=== PATIENT | male | born 1960 | race Caucasian/White ===

== ENCOUNTER 2020-04-28 09:05 | Inpatient (IN) ==
[2020-04-28] MEDS: Metoprolol XL (24 HR) Succ 50 MG TAB.ER.24H PO SCH (21:27)
[2020-04-28] MEDS: Lactobacillus 1 EACH CAP.SPRINK PO SCH (21:27)
[2020-04-28] MEDS: CarBAMazepine 100 MG TABLET PO SCH (21:27)
[2020-04-28] MEDS: Gabapentin 300 MG CAPSULE PO SCH (21:27)
[2020-04-29] MEDS ORDERED: Dextrose Gel 15 GM/37.5 ML TUBE PO PRN ×2 (02:24)
[2020-04-29] MEDS ORDERED: *HR* Dextrose 50 % in Water (Vial) 50 ML VIAL IVP PRN (02:24)
[2020-04-29] MEDS ORDERED: D5% in Water 1,000 ML IVC PRN (02:24)
[2020-04-29] MEDS: Acetaminophen 325 MG TABLET PO PRN (02:48)
[2020-04-29 04:54] LABS: Basophils # 0.1 K/mcL (0.0-0.2); Basophils % 0.5 %; Eosinophils # 0.2 K/mcL (0.0-0.6); Eosinophils % 2.2 %; Hematocrit 30.8 % (37.5-50.1); Hemoglobin 10.1 g/dL (12.9-16.9); Immature Granulocytes % 0.4 % (0-4); Lymphocytes # 2.3 K/mcL (0.6-4.6); Lymphocytes % 25.4 %; Mean Corpuscular HGB Conc 32.8 g/dL (31.6-35.5); Mean Corpuscular Hemoglobin 29.4 pg (28.0-33.3); Mean Corpuscular Volume 89.8 fL (83.0-100.0); Mean Platelet Volume 10.4 fL (9.4-12.4); Monocytes # 0.6 K/mcL (0.0-1.3); Monocytes % 6.6 %; Neutrophils # 5.9 K/mcL (1.6-8.9); Platelet Count 340 K/mcL (140-400); Red Blood Count 3.43 M/mcL (4.19-5.50); Segmented Neutrophils % 64.9 %; White Blood Count 9.1 K/mcL (4.3-11.1)
[2020-04-29 05:12] LABS: Calcium 8.9 mg/dL (8.6-10.3); Potassium 3.6 mEq/L (3.5-5.1)
[2020-04-29] MEDS: *HR* Enoxaparin 40 MG/0.4 ML SYRINGE SQ SCH (05:41)
[2020-04-29] MEDS ORDERED: Cyanocobalamin (B-12) 1,000 MCG TABLET PO SCH (09:00)
[2020-04-29] MEDS ORDERED: Folic Acid 1 MG TABLET PO SCH (09:00)
[2020-04-29] MEDS: Fluticasone Propionate Nasal 50 MCG/SPRAY BOTTLE NS SCH (09:27)
[2020-04-29] MEDS: Metoprolol XL (24 HR) Succ 50 MG TAB.ER.24H PO SCH ×2 (09:29→21:13)
[2020-04-29] MEDS: Gabapentin 300 MG CAPSULE PO SCH ×2 (09:29→21:13)
[2020-04-29] MEDS: Aspirin Enteric Coated 81 MG Tablet PO SCH (09:29)
[2020-04-29] MEDS: *HR* SitaGLIPtin 25 MG TABLET PO SCH (09:29)
[2020-04-29] MEDS: Lactobacillus 1 EACH CAP.SPRINK PO SCH ×2 (09:30→21:13)
[2020-04-29] MEDS: Loratadine 10 MG TABLET PO SCH (09:30)
[2020-04-29] MEDS: CarBAMazepine 100 MG TABLET PO SCH ×2 (09:30→21:14)
[2020-04-29] MEDS: allopurinoL 300 MG TABLET PO SCH (09:30)
[2020-04-29] MEDS: lisinopriL 10 MG TABLET PO SCH (09:44)
[2020-04-29] MEDS: Insulin LISPRO 300 UNITS/3 ML VIAL SUBQ SCH ×4 (09:44→20:00)
[2020-04-30] MEDS: *HR* Enoxaparin 40 MG/0.4 ML SYRINGE SQ SCH (04:17)
[2020-04-30] MEDS: *HR* SitaGLIPtin 25 MG TABLET PO SCH (08:03)
[2020-04-30] MEDS: Metoprolol XL (24 HR) Succ 50 MG TAB.ER.24H PO SCH ×2 (08:03→20:39)
[2020-04-30] MEDS: lisinopriL 10 MG TABLET PO SCH (08:03)
[2020-04-30] MEDS: Lactobacillus 1 EACH CAP.SPRINK PO SCH ×2 (08:03→20:39)
[2020-04-30] MEDS: Gabapentin 300 MG CAPSULE PO SCH ×2 (08:03→20:39)
[2020-04-30] MEDS: Fluticasone Propionate Nasal 50 MCG/SPRAY BOTTLE NS SCH (08:04)
[2020-04-30] MEDS: Loratadine 10 MG TABLET PO SCH (08:04)
[2020-04-30] MEDS: CarBAMazepine 100 MG TABLET PO SCH ×2 (08:04→20:39)
[2020-04-30] MEDS: Aspirin Enteric Coated 81 MG Tablet PO SCH (08:04)
[2020-04-30] MEDS: allopurinoL 300 MG TABLET PO SCH (08:04)
[2020-04-30] MEDS: Insulin LISPRO 300 UNITS/3 ML VIAL SUBQ SCH ×4 (08:09→20:32)
[2020-04-30] MEDS: Acetaminophen 325 MG TABLET PO PRN (11:40)
[2020-05-01] MEDS: *HR* Enoxaparin 40 MG/0.4 ML SYRINGE SQ SCH (05:00)
[2020-05-01 06:10] LABS: Basophils % 0.5 %; Eosinophils # 0.2 K/mcL (0.0-0.6); Eosinophils % 2.1 %; Hemoglobin 9.3 g/dL (12.9-16.9); Immature Granulocytes % 0.5 % (0-4); Lymphocytes # 2.2 K/mcL (0.6-4.6); Lymphocytes % 26.3 %; Mean Corpuscular HGB Conc 32.1 g/dL (31.6-35.5); Mean Corpuscular Hemoglobin 29.5 pg (28.0-33.3); Mean Corpuscular Volume 92.1 fL (83.0-100.0); Mean Platelet Volume 10.6 fL (9.4-12.4); Monocytes # 0.5 K/mcL (0.0-1.3); Monocytes % 6.4 %; Neutrophils # 5.3 K/mcL (1.6-8.9); Platelet Count 286 K/mcL (140-400); Red Blood Count 3.15 M/mcL (4.19-5.50); Red Cell Distribution Width 14.5 % (11.5-14.5); Segmented Neutrophils % 64.2 %; White Blood Count 8.3 K/mcL (4.3-11.1)
[2020-05-01 06:34] LABS: Calcium 8.6 mg/dL (8.6-10.3); Potassium 3.6 mEq/L (3.5-5.1)
[2020-05-01] MEDS: Metoprolol XL (24 HR) Succ 50 MG TAB.ER.24H PO SCH ×2 (09:36→20:25)
[2020-05-01] MEDS: Loratadine 10 MG TABLET PO SCH (09:36)
[2020-05-01] MEDS: lisinopriL 10 MG TABLET PO SCH (09:36)
[2020-05-01] MEDS: Gabapentin 300 MG CAPSULE PO SCH ×2 (09:36→20:25)
[2020-05-01] MEDS: allopurinoL 300 MG TABLET PO SCH (09:36)
[2020-05-01] MEDS: Lactobacillus 1 EACH CAP.SPRINK PO SCH ×2 (09:36→20:26)
[2020-05-01] MEDS: Aspirin Enteric Coated 81 MG Tablet PO SCH (09:36)
[2020-05-01] MEDS: *HR* SitaGLIPtin 25 MG TABLET PO SCH (09:36)
[2020-05-01] MEDS: Fluticasone Propionate Nasal 50 MCG/SPRAY BOTTLE NS SCH (09:37)
[2020-05-01] MEDS: CarBAMazepine 100 MG TABLET PO SCH ×2 (09:37→20:25)
[2020-05-01] MEDS: Insulin LISPRO 300 UNITS/3 ML VIAL SUBQ SCH ×4 (09:37→19:47)
[2020-05-02] MEDS: *HR* Enoxaparin 40 MG/0.4 ML SYRINGE SQ SCH (04:39)
[2020-05-02] MEDS: Insulin LISPRO 300 UNITS/3 ML VIAL SUBQ SCH ×4 (07:29→20:40)
[2020-05-02] MEDS: lisinopriL 10 MG TABLET PO SCH (09:01)
[2020-05-02] MEDS: Loratadine 10 MG TABLET PO SCH (09:01)
[2020-05-02] MEDS: allopurinoL 300 MG TABLET PO SCH (09:01)
[2020-05-02] MEDS: Aspirin Enteric Coated 81 MG Tablet PO SCH (09:01)
[2020-05-02] MEDS: Metoprolol XL (24 HR) Succ 50 MG TAB.ER.24H PO SCH ×2 (09:01→20:40)
[2020-05-02] MEDS: *HR* SitaGLIPtin 25 MG TABLET PO SCH (09:01)
[2020-05-02] MEDS: CarBAMazepine 100 MG TABLET PO SCH ×2 (09:01→20:39)
[2020-05-02] MEDS: Gabapentin 300 MG CAPSULE PO SCH ×2 (09:02→20:40)
[2020-05-02] MEDS: Lactobacillus 1 EACH CAP.SPRINK PO SCH ×2 (09:02→20:39)
[2020-05-02] MEDS: Fluticasone Propionate Nasal 50 MCG/SPRAY BOTTLE NS SCH (09:02)
[2020-05-03] MEDS: *HR* Enoxaparin 40 MG/0.4 ML SYRINGE SQ SCH (05:50)
[2020-05-03] MEDS: Insulin LISPRO 300 UNITS/3 ML VIAL SUBQ SCH ×4 (07:30→21:29)
[2020-05-03] MEDS: Loratadine 10 MG TABLET PO SCH (09:21)
[2020-05-03] MEDS: lisinopriL 10 MG TABLET PO SCH (09:21)
[2020-05-03] MEDS: Gabapentin 300 MG CAPSULE PO SCH ×2 (09:21→21:29)
[2020-05-03] MEDS: *HR* SitaGLIPtin 25 MG TABLET PO SCH (09:21)
[2020-05-03] MEDS: CarBAMazepine 100 MG TABLET PO SCH ×2 (09:22→21:28)
[2020-05-03] MEDS: Fluticasone Propionate Nasal 50 MCG/SPRAY BOTTLE NS SCH (09:22)
[2020-05-03] MEDS: Lactobacillus 1 EACH CAP.SPRINK PO SCH ×2 (09:22→21:28)
[2020-05-03] MEDS: Aspirin Enteric Coated 81 MG Tablet PO SCH (09:22)
[2020-05-03] MEDS: Metoprolol XL (24 HR) Succ 50 MG TAB.ER.24H PO SCH ×2 (09:22→21:29)
[2020-05-03] MEDS: allopurinoL 300 MG TABLET PO SCH (09:22)
[2020-05-04] MEDS: *HR* Enoxaparin 40 MG/0.4 ML SYRINGE SQ SCH (05:19)
[2020-05-04 05:54] LABS: Hematocrit 30.5 % (37.5-50.1); Hemoglobin 9.7 g/dL (12.9-16.9); Mean Corpuscular HGB Conc 31.8 g/dL (31.6-35.5); Mean Corpuscular Hemoglobin 28.9 pg (28.0-33.3); Mean Corpuscular Volume 90.8 fL (83.0-100.0); Mean Platelet Volume 11.2 fL (9.4-12.4); Platelet Count 316 K/mcL (140-400); Red Blood Count 3.36 M/mcL (4.19-5.50); Red Cell Distribution Width 14.4 % (11.5-14.5); White Blood Count 8.1 K/mcL (4.3-11.1)
[2020-05-04 06:16] LABS: Calcium 8.9 mg/dL (8.6-10.3); Magnesium 1.8 mg/dL (1.6-2.6); Potassium 4.1 mEq/L (3.5-5.1)
[2020-05-04] MEDS: Insulin LISPRO 300 UNITS/3 ML VIAL SUBQ SCH ×4 (08:40→21:46)
[2020-05-04] MEDS: allopurinoL 300 MG TABLET PO SCH (11:45)
[2020-05-04] MEDS: *HR* SitaGLIPtin 25 MG TABLET PO SCH (11:45)
[2020-05-04] MEDS: Loratadine 10 MG TABLET PO SCH (11:45)
[2020-05-04] MEDS: Aspirin Enteric Coated 81 MG Tablet PO SCH (11:45)
[2020-05-04] MEDS: Metoprolol XL (24 HR) Succ 50 MG TAB.ER.24H PO SCH ×2 (11:45→21:45)
[2020-05-04] MEDS: lisinopriL 10 MG TABLET PO SCH (11:46)
[2020-05-04] MEDS: CarBAMazepine 100 MG TABLET PO SCH ×2 (11:46→21:45)
[2020-05-04] MEDS: Lactobacillus 1 EACH CAP.SPRINK PO SCH ×2 (11:46→21:45)
[2020-05-04] MEDS: Gabapentin 300 MG CAPSULE PO SCH ×2 (11:46→21:44)
[2020-05-04] MEDS: Fluticasone Propionate Nasal 50 MCG/SPRAY BOTTLE NS SCH (12:08)
[2020-05-04] MEDS: Acetaminophen 325 MG TABLET PO PRN (21:45)
[2020-05-05] MEDS: *HR* Enoxaparin 40 MG/0.4 ML SYRINGE SQ SCH (06:09)
[2020-05-05] MEDS: Insulin LISPRO 300 UNITS/3 ML VIAL SUBQ SCH ×4 (08:28→20:00)
[2020-05-05] MEDS: Metoprolol XL (24 HR) Succ 50 MG TAB.ER.24H PO SCH ×2 (08:29→19:59)
[2020-05-05] MEDS: allopurinoL 300 MG TABLET PO SCH (08:29)
[2020-05-05] MEDS: Gabapentin 300 MG CAPSULE PO SCH ×2 (08:29→19:58)
[2020-05-05] MEDS: Loratadine 10 MG TABLET PO SCH (08:30)
[2020-05-05] MEDS: CarBAMazepine 100 MG TABLET PO SCH ×2 (08:30→19:59)
[2020-05-05] MEDS: Aspirin Enteric Coated 81 MG Tablet PO SCH (08:30)
[2020-05-05] MEDS: Lactobacillus 1 EACH CAP.SPRINK PO SCH ×2 (08:30→19:58)
[2020-05-05] MEDS: lisinopriL 10 MG TABLET PO SCH (08:30)
[2020-05-05] MEDS: *HR* SitaGLIPtin 25 MG TABLET PO SCH (08:30)
[2020-05-05] MEDS: Fluticasone Propionate Nasal 50 MCG/SPRAY BOTTLE NS SCH (08:44)
[2020-05-05] MEDS: Doxycycline 100 MG CAPSULE PO SCH (19:59)
[2020-05-06] MEDS: Acetaminophen 325 MG TABLET PO PRN (00:42)
[2020-05-06] MEDS: *HR* Enoxaparin 40 MG/0.4 ML SYRINGE SQ SCH (05:07)
[2020-05-06] MEDS: Insulin LISPRO 300 UNITS/3 ML VIAL SUBQ SCH ×4 (09:12→20:44)
[2020-05-06] MEDS: Lactobacillus 1 EACH CAP.SPRINK PO SCH ×2 (10:02→20:43)
[2020-05-06] MEDS: Aspirin Enteric Coated 81 MG Tablet PO SCH (10:02)
[2020-05-06] MEDS: Metoprolol XL (24 HR) Succ 50 MG TAB.ER.24H PO SCH ×2 (10:02→20:43)
[2020-05-06] MEDS: Gabapentin 300 MG CAPSULE PO SCH ×2 (10:02→20:43)
[2020-05-06] MEDS: Loratadine 10 MG TABLET PO SCH (10:02)
[2020-05-06] MEDS: allopurinoL 300 MG TABLET PO SCH (10:02)
[2020-05-06] MEDS: *HR* SitaGLIPtin 25 MG TABLET PO SCH (10:02)
[2020-05-06] MEDS: lisinopriL 10 MG TABLET PO SCH (10:03)
[2020-05-06] MEDS: Doxycycline 100 MG CAPSULE PO SCH ×2 (10:03→20:43)
[2020-05-06] MEDS: CarBAMazepine 100 MG TABLET PO SCH ×2 (10:03→20:43)
[2020-05-06] MEDS: Fluticasone Propionate Nasal 50 MCG/SPRAY BOTTLE NS SCH (10:09)
[2020-05-07] MEDS: *HR* Enoxaparin 40 MG/0.4 ML SYRINGE SQ SCH (05:35)
[2020-05-07] MEDS: Doxycycline 100 MG CAPSULE PO SCH ×2 (09:30→20:33)
[2020-05-07] MEDS: Aspirin Enteric Coated 81 MG Tablet PO SCH (09:31)
[2020-05-07] MEDS: Loratadine 10 MG TABLET PO SCH (09:31)
[2020-05-07] MEDS: CarBAMazepine 100 MG TABLET PO SCH ×2 (09:31→20:32)
[2020-05-07] MEDS: lisinopriL 10 MG TABLET PO SCH (09:31)
[2020-05-07] MEDS: Gabapentin 300 MG CAPSULE PO SCH ×2 (09:31→20:34)
[2020-05-07] MEDS: Lactobacillus 1 EACH CAP.SPRINK PO SCH ×2 (09:31→20:32)
[2020-05-07] MEDS: *HR* SitaGLIPtin 25 MG TABLET PO SCH (09:31)
[2020-05-07] MEDS: allopurinoL 300 MG TABLET PO SCH (09:31)
[2020-05-07] MEDS: Insulin LISPRO 300 UNITS/3 ML VIAL SUBQ SCH ×4 (09:32→21:01)
[2020-05-07] MEDS: Metoprolol XL (24 HR) Succ 50 MG TAB.ER.24H PO SCH ×2 (09:32→20:34)
[2020-05-07] MEDS: Fluticasone Propionate Nasal 50 MCG/SPRAY BOTTLE NS SCH (09:32)
[2020-05-08 05:41] LABS: Basophils # 0.1 K/mcL (0.0-0.2); Basophils % 0.6 %; Eosinophils # 0.3 K/mcL (0.0-0.6); Eosinophils % 3.5 %; Hemoglobin 9.2 g/dL (12.9-16.9); Immature Granulocytes % 0.7 % (0-4); Lymphocytes # 2.4 K/mcL (0.6-4.6); Lymphocytes % 29.1 %; Mean Corpuscular HGB Conc 31.7 g/dL (31.6-35.5); Mean Corpuscular Volume 91.5 fL (83.0-100.0); Mean Platelet Volume 10.3 fL (9.4-12.4); Monocytes # 0.8 K/mcL (0.0-1.3); Monocytes % 9.3 %; Neutrophils # 4.6 K/mcL (1.6-8.9); Platelet Count 343 K/mcL (140-400); Red Blood Count 3.17 M/mcL (4.19-5.50); Red Cell Distribution Width 14.5 % (11.5-14.5); Segmented Neutrophils % 56.8 %; White Blood Count 8.2 K/mcL (4.3-11.1)
[2020-05-08] MEDS: *HR* Enoxaparin 40 MG/0.4 ML SYRINGE SQ SCH (05:50)
[2020-05-08 06:02] LABS: Calcium 8.8 mg/dL (8.6-10.3); Potassium 4.3 mEq/L (3.5-5.1)
[2020-05-08 07:20] VITALS: BP 114/69
[2020-05-08] MEDS: Insulin LISPRO 300 UNITS/3 ML VIAL SUBQ SCH (07:59)
[2020-05-08] MEDS: Lactobacillus 1 EACH CAP.SPRINK PO SCH (08:07)
[2020-05-08] MEDS: Gabapentin 300 MG CAPSULE PO SCH (08:07)
[2020-05-08] MEDS: *HR* SitaGLIPtin 25 MG TABLET PO SCH (08:07)
[2020-05-08] MEDS: Aspirin Enteric Coated 81 MG Tablet PO SCH (08:07)
[2020-05-08] MEDS: Doxycycline 100 MG CAPSULE PO SCH (08:07)
[2020-05-08] MEDS: lisinopriL 10 MG TABLET PO SCH (08:08)
[2020-05-08] MEDS: CarBAMazepine 100 MG TABLET PO SCH (08:08)
[2020-05-08] MEDS: Loratadine 10 MG TABLET PO SCH (08:08)
[2020-05-08] MEDS: allopurinoL 300 MG TABLET PO SCH (08:08)
[2020-05-08] MEDS: Metoprolol XL (24 HR) Succ 50 MG TAB.ER.24H PO SCH (08:08)
[2020-05-08] MEDS: Fluticasone Propionate Nasal 50 MCG/SPRAY BOTTLE NS SCH (08:09)
== END 2020-05-08 11:59 | disposition home health service (06) | DRG 149 ==
LOC: INPGRE 14:55
PROVIDERS: ADMIT Family Medicine; ATTEND Family Medicine